=== PATIENT | male | born 1965 | race Caucasian/White ===

== ENCOUNTER 2017-02-10 14:30 | Inpatient (IN) | payer BC ==
[2017-02-10 14:56] VITALS: BMI 30.8
--- OUTSIDE RECORDS SUMMARY | 2017-02-12 05:31 | XMS | Clinical Summary ---
:1965 Author Organization [facility] Address [address] [place] [address] Phone Care Team Providers Name Role Phone , Primary Care Provider Unavailable Allergies No Known Allergies Current Medications Prescription Sig. Disp. Refills Start Date End Date Status darunavir (PREZISTA) Take 600 mg by Active 400 MG tablet mouth 2 (two) times daily with breakfast and dinner. etravirine Take 200 mg by Active (INTELENCE) 100 mg mouth 2 (two) tablet times daily. gabapentin Take 300 mg by 11/27/2014 Active (NEURONTIN) 600 MG mouth 300mg in AM tablet and 600mg in PM. montelukast Take 10 mg by Active (SINGULAIR) 10 mg mouth daily. tablet ritonavir 100 mg Tab Take 1 tablet 0 01/05/2015 Active (100 mg total) by mouth 2 (two) times daily with breakfast and dinner. naloxegol (MOVANTIK) Take 25 mg by Active 25 mg Oral Tab tablet mouth daily. multivitamin Take 1 tablet by Active (MULTIVITAMIN) per mouth daily. tablet MULTIVITAMIN WITH Take 3 tablets by Active MINERALS (HAIR,SKIN mouth daily. AND NAILS ORAL) lactobacillus Take 1 capsule by Active rhamnosus, GG, mouth daily. (CULTURELLE) 10 billion cell capsule lidocaine (LIDODERM) Place 1 patch Active 5 % patch onto the skin daily Pt cuts patch in half and applies to marge shoulders. . HYDROcodone-acetamino Take 1 tablet by Active phen (NORCO 10-325) mouth every 6 10-325 mg per tablet (six) hours as needed for Pain. ELVITEG/MADI/EMTRIC/T Take by mouth. Active ENOFO ALA (GENVOYA ORAL) HYDROmorphone Take 0.5 tablets 30 tablet 0 08/22/2016 Active (DILAUDID) 4 MG (2 mg total) by tablet mouth 3 (three) times daily as needed for Pain. Max Daily Amount: 6 mg aspirin 81 MG Take 1 tablet (81 90 tablet 0 08/22/2016 08/22/2017 Active chewable tablet mg total) by mouth daily. atorvastatin Take 1 tablet (20 90 tablet 0 08/22/2016 08/22/2017 Active (LIPITOR) 20 MG mg total) by tablet mouth nightly. lactulose (CHRONULAC) Take 30 mLs (20 g 500 mL 0 08/22/2016 Active 20 gram/30 mL total) by mouth 2 solution (two) times daily. Active Problems Problem Noted Date CAD (coronary artery disease) 07/17/2016 AICD (automatic cardioverter/defibrillator) present 07/17/2016 HI (myocardial infarction) 07/17/2016 Ventral hernia 07/17/[address] ([facility]) 07/08/2016 Diverticulitis large intestine w/o perforation or abscess w/o bleeding 2016 History of creation of ostomy 07/08/2016 Leukocytosis 12/10/2014 Thrombocytosis ([facility]) 12/10/2014 Nausea & vomiting 12/10/2014 Perforation of sigmoid colon s/p colectomy, end colostomy 12/0412/06/2014 HIV (human immunodeficiency virus infection) ([facility]) 12/06/2014 Sepsis, due to unspecified organism ([facility]) 12/04/2014 Cellulitis 11/28/2014 Cellulitis of foot 11/27/2014 Social History Tobacco Use Types Packs/Day Years Used Date Never Smoker Smokeless Tobacco: Former User Snuff Quit: 08/03/2014 Alcohol Use Drinks/Week oz/Week Comments Yes occasional beer Sex Assigned at Date Recorded Not on file Last Filed Vital Signs Vital Sign Reading Time Taken Blood Pressure 129/77 08/22/2016 12:00 PM CDT Pulse 88 08/22/2016 12:00 PM CDT Temperature 37.1 C (98.7 F) 08/22/2016 12:00 PM CDT Respiratory Rate 20 08/22/2016 12:00 PM CDT Oxygen Saturation 100% 08/22/2016 12:00 PM CDT Inhaled Oxygen Concentration - - Weight 113.4 kg (250 lb) 08/11/2016 8:14 PM CDT Height 185.4 cm (6' 1") 08/11/2016 8:14 PM CDT Body Mass Index 32.98 08/11/2016 8:14 PM CDT Plan of Treatment Not on file Implants Implanted Type Area Television Specialist Device Expiration Model / Identifier Date Serial / Lot Nail Ankle Arthro T2 [id number] [id number] - [id number] Fracture/F Left: Ankle KUSH:KUSH 06/03/2021 [id number] / Implanted:Qty: 1 on 08/20/2016 by Gregory Thibodeaux MD [facility] ORTHOPAEDICS / [id number] Scr Lisseth T2ft 5x40mm Ti Strl - [id number] Fracture/F Left: Ankle KUSH: KUSH 03/05/2021 [id number] / Implanted:Qty: 1 on 08/20/2016 by Gregory Thibodeaux MD [facility] ORTHOPAEDICS / [id number] End Cap Supcndyl Nail T2 Strl 1826-0003s - [id number] Fracture/F Left: Ankle KUSH:KUSH 05/06/2021 [id number] / Implanted:Qty: 1 on 08/20/2016 by Gregory Thibodeaux MD [facility] ORTHOPAEDICS / [id number] Scr Lisseth T2ft 5x40mm Ti Strl - [id number] Fracture/F Left: Ankle KUSH: KUSH 05/06/2021 [id number] / Implanted:Qty: 1 on 08/20/2016 by Gregory Thibodeaux MD [facility] ORTHOPAEDICS / [id number] Scr Lisseth T2ft 5x55mm Ti Strl - [id number] Fracture/F Left: Ankle KUSH: KUSH 04/05/2021 [id number] / Implanted:Qty: 1 on 08/20/2016 by Gregory Thibodeaux MD [facility] ORTHOPAEDICS / [id number] Scr Lisseth T2ft 5x90mm Ti Strl - [id number] Fracture/F Left: Ankle KUSH: KUSH 01/03/2021 [id number] / Implanted:Qty: 1 on 08/20/2016 by Gregory Thibodeaux MD [employer]TH[employer] / [id number] [facility] Katerine Lng-Thrd 4.0x34 Ns - [id number] Fracture/F Left: Ankle SYNTHES: SYNTHES 207.734 / Implanted:Qty: 2 on 08/20/2016 by Gregory Thibodeaux MD [employer] [facility] / Scr Katerine Lng-Thrd 4.0x36 Ns - [id number] Fracture/F Left: Ankle SYNTHES: SYNTHES 207.736 / Implanted:Qty: 1 on 08/20/2016 by Gregory Thibodeaux MD [employer] [facility] / Tiss Live Frm Strtce 20x30 [id number] - [id number] Tissue N/A: LIFECELL 02/03 / Implanted:Qty: 1 on 07/08/2016 by Nickolas Ibrahim MD Graft/Subs Abdomen / titute [id number] Results Not on filefrom Last 3 Months Advance Directives Patient has advance directives. For more information, please contact:[address] [phone]
[2017-02-12] MEDS ORDERED: Lidocaine 1% (PF) 30 ML VIAL ONE (06:28)
[2017-02-12] MEDS ORDERED: Midazolam HCl 2 mg/2 ml Vial ONE ×2 (06:28→07:02)
[2017-02-12] MEDS ORDERED: Ropivacaine 0.2% HCl/PF 20 ML ONE (06:28)
[2017-02-12] MEDS ORDERED: Fentanyl 100 MCG/2 ML VIAL ONE ×2 (06:28→07:02)
[2017-02-12] MEDS ORDERED: CEFAZOLIN/Water 2 GM/20 ML SYRINGE ONE (06:32)
[2017-02-12] MEDS ORDERED: Tranexamic Acid 1,000 MG/100 ML BAG ONE ×2 (06:32→10:35)
[2017-02-12] MEDS ORDERED: Vancomycin HCl 1.5 GM in Sodium Chloride 0.9% 250 ML 300 ML IVPB SCH ×2 (06:45→19:00)
[2017-02-12] MEDS ORDERED: Ondansetron HCl/PF 4 MG/2 ML Vial IVP PRN ×2 (07:02→09:39)
[2017-02-12] MEDS ORDERED: Promethazine HCl 25 MG/ML VIAL IM PRN ×2 (07:02→09:39)
[2017-02-12] MEDS ORDERED: HYDROcodone/Acetaminophen 10/325 mg Tablet PO PRN (07:02)
[2017-02-12] MEDS ORDERED: Ropivacaine 0.2% 550 ML 550 ML NERVE BLCK SCH (07:02)
[2017-02-12] MEDS ORDERED: Zolpidem Tartrate 5 MG TAB PO PRN (07:02)
[2017-02-12] MEDS ORDERED: traMADol HCl 50 MG TAB PO PRN ×2 (07:02)
[2017-02-12] MEDS ORDERED: Fentanyl 250 MCG/5 ML VIAL ONE (07:34)
[2017-02-12] MEDS ORDERED: Glycopyrrolate 0.2 MG/ML 5 ML SYRINGE ONE (07:46)
[2017-02-12] MEDS ORDERED: Ketorolac Tromethamine 30 MG/ML VIAL ONE (07:46)
[2017-02-12] MEDS ORDERED: Ondansetron HCl/PF 4 MG/2 ML Vial ONE (07:46)
[2017-02-12] MEDS ORDERED: PHENYLEPHRINE-NS 100 MCG/ML 10 ML SYRINGE ONE (07:46)
[2017-02-12] MEDS ORDERED: Propofol 200 MG/20 ML VIAL ONE (07:46)
[2017-02-12] MEDS ORDERED: Promethazine HCl 25 MG/ML VIAL SLOW IVP PRN (09:39)
[2017-02-12] MEDS ORDERED: Tranexamic Acid 1,000 MG in Sodium Chloride 0.9% 100 ML IVPB SCH (09:45)
--- NOTE | 2017-02-12 10:27 | OP ---
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 PROCEDURE PERFORMED: Right total shoulder arthroplasty. STAFF: Mayank Bowman M.D. WOODYARD CRANE OPERATOR: Michele Mendez PA-C. ANESTHESIA: Gibosn Brantley. The patient received general endotracheal intubation with interscalene block. ESTIMATED BLOOD LOSS: 300 mL. TOURNIQUET TIME: None. IMPLANTS: A Tornier large 60 chorda lock glenoid, a 50 x 16 long offset head and 60 Flex stem, Tornier products. ANTIBIOTICS: The patient received antibiotics 1.5 mg of vancomycin, 2 grams of Ancef, TXA 1 gram. COMPLICATIONS: None. HISTORY OF PRESENT ILLNESS: Mr. Silva is a 51-year-old male with history of HIV , he is treated in [place] by an Infectious Disease doctor. He also has a history of cardiac disease, has a pacemaker in place on his right side. The patient's right shoulder had an AVN, he has had several injections with good pain relief. The patient was cleared by his formstone fitter and Infectious Disease doctor for T-cell counts and for his heart. I discussed with the patient he is at increased risk of infection, decreased range of motion or strength, damage to vital structures, need for revision surgery, loss of life or limb. The patient understands the risks and benefits and elected to proceed. Time out was performed designating his right upper extremity as the operative site based on sight, consents, markings. PROCEDURE NOTE: Timeout was performed designating his right upper extremity as the operative site based on sight, consents, markings. An anterior incision was made down through skin, deltopectoral interval. We exposed the clavipectoral fascia and the conjoint tendon underneath and placed our Cobell under the conjoint tendon. We exposed the biceps which was actually already torn, then we followed up into the bicipital groove. We took down the subscapularis as well as all the capsule and exposed the inferior neck, using blunt dissection and cautery on bone to expose the osteophytes inferiorly. We then dislocated the head, took osteophytes off inferiorly off of the neck as well as anteriorly. I also took some osteophytes on top of restricting the cuff. We cut our head, ended up in a C angle upon completion, all of our processing of the humeral head. We broached up to a 4, placed a hub cap on top then exposed the glenoid. We started procedure 360 degree release. He had been cleaned down almost to the bone and medialized. We did not do much, we only did some simple reaming to take the anterior lip off, otherwise we cleaned off the glenoid flush. We cleaned off all the cartilage, rongeured off. We then placed our center hole, drilled. We placed our center hole. Before reaming we placed our center hole, enlarged it, placed our pegged implant, drilled our 3 holes, we removed it. We then placed our final implants. It set flush, cemented into place. We were happy with its alignment. I then moved back to the humerus, leaving it to cure before manipulating it. We went up to a size 6, felt we had good stability with size 6 within the bone. We then drilled 5 #5 stitches, 4 as future W stitches and one as a secondary double row over the top through the cuff and through the most lateral part of the greater tuberosity and passed through the stem. After we cured our cement for about 20 minutes we then placed our stem, reduced it into place, had good about 40-50% translation rotated to the side, was able to bring it 130 degrees overhead. I was happy with the overall position and alignment. We then removed it. We placed our final implant, we passed in W stitch fashion from superior to inferior through the cuff a #5. We then tied the double row, which was a running #5 through the cuff to the stitch going through the cuff and out the lateral tuberosity to help with a double row over top. We then put #1 Ethibond stitch into the rotator interval. We then washed, closed the deltopectoral interval with general subcu and skin with norah. The patient will be admitted postoperative for pain control. He will be followed in-house and we will get him discharged based on pain control. The patient will be treated for pain by his chronic pain specialist. DANIEL
[2017-02-12] MEDS ORDERED: fentaNYL 75 mcg/hour Patch TD SCH (12:00)
[2017-02-12] MEDS ORDERED: IBANDRONATE SODIUM 150 MG PO SCH (12:00)
[2017-02-12] MEDS ORDERED: Ondansetron ODT 4 MG TAB PO PRN (12:17)
[2017-02-12] MEDS ORDERED: diphenhydrAMINE 50 MG CAP PO PRN (12:17)
[2017-02-12] MEDS ORDERED: Acetaminophen 325 MG TAB PO PRN (12:17)
[2017-02-12] MEDS ORDERED: Bisacodyl 10 MG SUPP PR PRN (12:17)
--- NOTE | 2017-02-12 12:18 | RAD ---
TWO VIEWS RIGHT SHOULDER: Comparison: None. History: Right shoulder arthroplasty. FINDINGS: Two views of the right shoulder shows the patient to be status post right shoulder arthroplasty with out perihardware lucency or fracture. Overlying skin norah are from recent surgery. A pacemaker is partially visualized. IMPRESSION: Status post right shoulder arthroplasty without evidence of complication. POS: [facility]
[2017-02-12] MEDS: Dextrose 5 %-0.45 % NaCl 1,000 ML IV SCH (13:25)
[2017-02-12] MEDS: CEFAZOLIN/Water 2 GM/20 ML SYRINGE SLOW IVP SCH ×2 (14:28→21:15)
[2017-02-12] MEDS ORDERED: Ropivacaine 0.5% HCl/PF (150 MG/30 ML VIAL) ONE (15:30)
[2017-02-12] MEDS: HYDROcodone/Acetaminophen 10/325 mg Tablet PO PRN (18:03)
[2017-02-12] MEDS ORDERED: [UNRECOGNIZED DRUG - OTHER] PO SCH (18:15)
[2017-02-12] MEDS: Methocarbamol 500 MG TAB PO PRN (20:04)
[2017-02-12] MEDS ORDERED: Gabapentin 300 MG CAP PO SCH (21:00)
[2017-02-12] MEDS ORDERED: Hydroxyurea 500 MG CAP PO SCH (21:00)
[2017-02-12] MEDS ORDERED: Temazepam 15 MG CAP PO SCH (21:00)
[2017-02-13] MEDS: Fentanyl 100 MCG/2 ML VIAL IV PRN ×3 (00:02→15:55)
[2017-02-13] MEDS: HYDROcodone/Acetaminophen 10/325 mg Tablet PO PRN ×2 (04:14→13:11)
[2017-02-13] MEDS: Methocarbamol 500 MG TAB PO PRN (04:17)
[2017-02-13] MEDS: Dextrose 5 %-0.45 % NaCl 1,000 ML IV SCH (04:19)
[2017-02-13] MEDS ORDERED: Lidocaine 5% Patch TD SCH (09:00)
[2017-02-13] MEDS ORDERED: [UNRECOGNIZED DRUG - OTHER] PO SCH (09:00)
[2017-02-13] MEDS ORDERED: Aspirin 325 MG TAB PO SCH (09:00)
[2017-02-13] MEDS ORDERED: Ferrous Sulfate 325 MG TAB PO SCH (09:00)
[2017-02-13] MEDS ORDERED: Vit A,C & E/Lutein/Minerals Tablet PO SCH (09:00)
[2017-02-13 16:24] VITALS: BP 156/75; TEMP 98.6
[2017-02-13] MEDS ORDERED: Lidocaine Patch Removal 1 EACH TOP SCH (21:00)
--- NOTE | 2017-02-22 14:34 | EKG ---
Test Reason : PREOP Blood Pressure : / mmHG Vent. Rate : 058 BPM Atrial Rate : 058 BPM P-R Int : 172 ms QRS Dur : 104 ms QT Int : 430 ms P-R-T Axes : 053 016 038 degrees QTc Int : 422 ms Sinus bradycardia Otherwise normal ECG When compared with ECG of 26-FEB-2016 14:03, Minimal criteria for Anteroseptal infarct are no longer Present Confirmed by ANN-MARIE MASON (2) on 02/22/2017 2:34:32 PM Referred By: MAURI Confirmed By:ANN-MARIE MASON
== END 2017-02-13 16:28 | disposition home or self-care (01) | DRG 483 ==
LOC: SURG A 02-12 05:28 → SJJU 02-12 11:28
PROVIDERS: ADMIT Orthopaedic Surgery; ATTEND Orthopaedic Surgery
PROC: 0RRJ0JZ Replacement of Right Shoulder Joint with Synthetic Substitute, Open Approach (ICD-10-PCS; principal; 2017-02-12)
PROC: 3E0T3BZ Introduction of Anesthetic Agent into Peripheral Nerves and Plexi, Percutaneous Approach (ICD-10-PCS; 2017-02-12)
DX: M19.011 Primary osteoarthritis, right shoulder (principal); M87.9 Osteonecrosis, unspecified; S46.111A Strain of muscle, fascia and tendon of long head of biceps, right arm, initial encounter; X58.XXXA Exposure to other specified factors, initial encounter; Z95.0 Presence of cardiac pacemaker; Z21 Asymptomatic human immunodeficiency virus [HIV] infection status; I25.2 Old myocardial infarction; Z86.14 Personal history of Methicillin resistant Staphylococcus aureus infection; Z96.641 Presence of right artificial hip joint
CPT/HCPCS: 93005; 93010; A4306; C1713; G8978-GP-CI; G8979-GP-CI; G8980-GP-CI; G8987-GO-CJ; G8988-GO-CJ; G8989-GO-CJ; J1642; J1885; J2001; J2250; J2405; J2704; J2795; J3010; J3370; J7050

== ENCOUNTER 2017-07-08 11:35 | Outpatient (CLI) | payer BC ==
[2017-07-08] MEDS ORDERED: Lidocaine 1% PF 10 ML AMP ONE (12:20)
[2017-07-08] MEDS ORDERED: Iopamidol 300 61% 30 ML VIAL ONE (12:20)
[2017-07-08] MEDS ORDERED: Sodium Chloride 0.9% 50 ML BAG ONE (12:20)
[2017-07-08] MEDS ORDERED: EPINEPHrine 1 MG/ML AMP ONE (12:20)
--- NOTE | 2017-07-08 17:35 | RAD ---
PROCEDURE: LEFT SHOULDER ARTHROGRAM 07/08/17 INDICATIONS: Severe degenerative change at left shoulder with pain. FINDINGS: Compensation And Benefits Manager film showed deformity of the humeral head with severe hypertrophic degenerative changes at the glenohumeral joint. Diluted iodinated contrast which was premixed by the pharmacy was injected throug h a 22 gauge spinal needle into the left shoulder joint under fluoroscopic observation. Contrast fills the shoulder joint. No definite extravasation into the subacromial space identified. See post CT arthrogram of left shoulder for further characterization. PROCEDURE NOTE: The anterior skin overlying the left shoulder was prepped and draped in the sterile manner. Local ane sthesia was administered with lidocaine under fluoroscopic guidance. A 22 gauge spinal needle was use d to enter the left shoulder joint under fluoroscopic guidance. Contrast solution was injected under fluoroscopic observation. Patient tolerated the procedure well and there were no problems or complic ations. POS: [facility]
--- NOTE | 2017-07-08 18:04 | CT ---
CT ARTHROGRAM LEFT SHOULDER WITH INTRA-ARTICULAR CONTRAST 07/08/17 PROVIDED CLINICAL HISTORY: Left shoulder pain. FINDINGS: There is complete loss of the left glenohumeral joint space. There is marked irregularity, flattening and subcortical cyst-like change seen involving the humeral head and to a lesser extent the glenoid, particularly superiorly. Numerous intra-articular bodies are noted throughout the glenohumeral joint, including within the sup erior subscapularis recess. Contrast material does not appear to extend beyond the expected confines of the shoulder joint capsule to suggest a full thickness rotator cuff tear. There is mild generalize d volume loss involving the musculature of the rotator cuff. Mild acromioclavicular joint degenerative changes are seen. The osseous structures demonstrate no con cerning osteoblastic or osteolytic lesions. Visualized left lung field appears clear. IMPRESSION: End-stage glenohumeral arthropathy with numerous large intra-articular bodies. No evidence for full t hickness rotator cuff tear. POS: [facility]
== END 2017-07-08 11:36 | disposition home or self-care (01) ==
LOC: RAD 11:35
PROVIDERS: ATTEND Orthopaedic Surgery
DX: M25.512 Pain in left shoulder (principal); M12.812 Other specific arthropathies, not elsewhere classified, left shoulder
CPT/HCPCS: 23350; J0171; J7050

== ENCOUNTER 2017-07-28 13:29 | Outpatient (CLI) | payer BC ==
[2017-07-28 14:43] LABS: Hemoglobin 14.5 g/dL (14.0-18.0); Mean Corpuscular Hemoglobin 31.1 pg (27.0-31.0); Mean Platelet Volume 6.7 fL (7.4-10.4); Platelet Count 565 thou/uL (130-400); RBC Distribution Width 15.5 % (11.5-14.5); Red Blood Cell (RBC) Count 4.66 mill/uL (4.70-6.10); White Blood Cell (WBC) Count 9.1 thou/uL (4.8-10.8)
[2017-07-28 14:50] LABS: INR-International Normal Ratio 1.1; Prothrombin Time 13.9 SEC (12.0-14.7)
[2017-07-28 15:05] LABS: Anion Gap 14 mmol/L (10-20); BUN (Urea Nitrogen) 17 mg/dL (8.4-25.7); Calc. Creatinine Clearance 0 mL/min (70-130); Calcium 9.3 mg/dL (7.8-10.44); Carbon Dioxide 27 mmol/L (22-29); Chloride 102 mmol/L (98-107); Estimated GFR-MDRD Greater than 90; Glucose 81 mg/dL (70-105); Potassium 4.7 mmol/L (3.5-5.1); Sodium 138 mmol/L (136-145)
== END 2017-07-28 13:30 | disposition home or self-care (01) ==
LOC: LABBT 13:29
PROVIDERS: ATTEND Orthopaedic Surgery
DX: Z01.812 Encounter for preprocedural laboratory examination (principal); M19.012 Primary osteoarthritis, left shoulder
CPT/HCPCS: 80048; 85027; 85610; 86850; 86900; 86901

== ENCOUNTER 2017-07-28 15:00 | Inpatient (IN) | payer BC ==
[2017-07-28 13:50] VITALS: BMI 32.1
[2017-07-30] MEDS ORDERED: CEFAZOLIN/Water 2 GM/20 ML SYRINGE ONE (08:00)
[2017-07-30] MEDS ORDERED: Vancomycin HCl 1.5 GM, Admixture Fee 1 EACH in Sodium Chloride 0.9% 250 ML 300 ML IVPB SCH (08:15)
[2017-07-30] MEDS ORDERED: Lidocaine 2% Jelly 5 ML TUBE ONE (08:19)
[2017-07-30] MEDS ORDERED: Phenylephrine HCL 10 MG/ML VIAL ONE (08:19)
[2017-07-30] MEDS ORDERED: Midazolam HCl 2 mg/2 ml Vial ONE (08:44)
[2017-07-30] MEDS ORDERED: Fentanyl 100 MCG/2 ML VIAL ONE ×3 (08:44→13:09)
[2017-07-30] MEDS ORDERED: Ropivacaine 0.2% 550 ML 550 ML NERVE BLCK SCH (09:23)
[2017-07-30] MEDS ORDERED: traMADol HCl 50 MG TAB PO PRN (09:23)
[2017-07-30] MEDS ORDERED: Promethazine HCl 25 MG/ML VIAL IM PRN ×2 (09:23→12:11)
[2017-07-30] MEDS ORDERED: Zolpidem Tartrate 5 MG TAB PO PRN (09:23)
[2017-07-30] MEDS ORDERED: Ondansetron HCl/PF 4 MG/2 ML Vial IVP PRN ×3 (09:23→14:13)
[2017-07-30] MEDS ORDERED: HYDROcodone/Acetaminophen 5/325 mg Tablet PO PRN (09:23)
[2017-07-30] MEDS ORDERED: Tranexamic Acid 1,000 MG in Sodium Chloride 0.9% 100 ML IVPB SCH (09:45)
[2017-07-30] MEDS ORDERED: Promethazine HCl 25 MG/ML VIAL SLOW IVP PRN (12:11)
[2017-07-30] MEDS ORDERED: Ropivacaine 0.2% HCl/PF (40 MG/20 ML VIAL) ONE (12:46)
[2017-07-30] MEDS ORDERED: Ropivacaine 0.5% HCl/PF (150 MG/30 ML VIAL) ONE (12:46)
[2017-07-30] MEDS ORDERED: PROPOFOL 200 MG/20 ML VIAL ONE (12:56)
[2017-07-30] MEDS ORDERED: PHENYLEPHRINE-NS 100 MCG/ML 10 ML SYRINGE ONE (12:56)
[2017-07-30] MEDS ORDERED: Ketorolac Tromethamine 30 MG/ML VIAL ONE (12:56)
[2017-07-30] MEDS ORDERED: Glycopyrrolate 0.2 MG/ML 5 ML SYRINGE ONE (12:56)
[2017-07-30] MEDS ORDERED: Acetaminophen 325 MG TAB PO PRN (14:13)
[2017-07-30] MEDS ORDERED: diphenhydrAMINE 50 MG CAP PO PRN (14:13)
[2017-07-30] MEDS ORDERED: Ondansetron ODT 4 MG TAB PO PRN (14:13)
[2017-07-30] MEDS ORDERED: Bisacodyl 10 MG SUPP PR PRN (14:13)
[2017-07-30] MEDS ORDERED: Milk Of Magnesia 30 ML UDCUP PO PRN (14:13)
[2017-07-30] MEDS: Fentanyl 100 MCG/2 ML VIAL IV PRN ×3 (15:46→23:39)
[2017-07-30] MEDS: Sodium Chloride 0.9% 1,000 ML IV SCH (17:29)
[2017-07-30] MEDS: CEFAZOLIN/Water 2 GM/20 ML SYRINGE SLOW IVP SCH ×2 (18:15→23:26)
[2017-07-30] MEDS ORDERED: Vancomycin HCl 1.5 GM in Sodium Chloride 0.9% 250 ML 300 ML IVPB SCH (20:00)
[2017-07-30] MEDS ORDERED: Chloraseptic Spray 180 ml Bottle PO PRN (20:18)
[2017-07-30] MEDS ORDERED: Gabapentin 300 MG CAP PO SCH (21:00)
[2017-07-30] MEDS ORDERED: Hydroxyurea 500 MG CAP PO SCH (21:00)
[2017-07-30] MEDS ORDERED: Montelukast Sodium 10 mg Tablet PO SCH (21:00)
[2017-07-30] MEDS ORDERED: Temazepam 15 MG CAP PO SCH (21:00)
[2017-07-30] MEDS: Famotidine 20 MG TAB PO SCH (21:11)
[2017-07-31] MEDS: HYDROcodone/Acetaminophen 5/325 mg Tablet PO PRN ×3 (00:53→22:58)
[2017-07-31] MEDS: traMADol HCl 50 MG TAB PO PRN ×3 (02:42→20:07)
[2017-07-31] MEDS: Fentanyl 100 MCG/2 ML VIAL IV PRN ×3 (05:44→19:49)
[2017-07-31] MEDS: Sodium Chloride 0.9% 1,000 ML IV SCH ×2 (05:44→09:45)
[2017-07-31] MEDS ORDERED: Non-Formulary Item 1 EACH (Ibandronate Sodium [Ibandronate Sodium] 150 MG) PO SCH (08:45)
[2017-07-31] MEDS ORDERED: LUTEIN PO SCH (09:00)
[2017-07-31] MEDS ORDERED: MULTIVIT MIN PO SCH (09:00)
[2017-07-31] MEDS ORDERED: Meloxicam 15 MG TAB PO SCH (09:00)
[2017-07-31] MEDS ORDERED: GENVOYA PO SCH (09:00)
[2017-07-31] MEDS ORDERED: [UNRECOGNIZED DRUG - OTHER] PO SCH (09:00)
[2017-07-31] MEDS ORDERED: FOLIC ACID PO SCH (09:00)
[2017-07-31] MEDS ORDERED: [UNRECOGNIZED DRUG - OTHER] PO SCH (09:00)
[2017-07-31] MEDS ORDERED: Ferrous Sulfate 325 MG TAB PO SCH ×2 (09:00→09:15)
[2017-07-31] MEDS ORDERED: FERROUS SULFATE 324 MG PO SCH (09:00)
[2017-07-31] MEDS ORDERED: fentaNYL 75 mcg/hour Patch TD SCH (09:00)
[2017-07-31] MEDS ORDERED: Lidocaine 5% Patch TD SCH (09:00)
[2017-07-31] MEDS ORDERED: Vit A,C & E/Lutein/Minerals Tablet PO SCH (09:15)
--- NOTE | 2017-07-31 09:35 | OP ---
DATE OF PROCEDURE: 07/30/2017 PREOPERATIVE DIAGNOSES: 1. Left shoulder osteoarthritis, severe. 2. Biceps tendonopathy. POSTOPERATIVE DIAGNOSES: 1. Left shoulder osteoarthritis, severe. 2. Biceps tendonopathy. PROCEDURES PERFORMED: 1. Left total shoulder arthroplasty. 2. Biceps tenodesis. STAFF: Mayank oBwman M.D. MERIT SYSTEM DIRECTOR: Michele Mendez PA-C. ANESTHESIA: Brantley. The patient received a general endotracheal intubation with interscalene block. ESTIMATED BLOOD LOSS: 400 mL. TOURNIQUET TIME: None. IMPLANTS: A Tornier 50 x 19 mm high offset head with a flex 60 stem, a large 60 chorda lock glenoid. ANTIBIOTICS: Vancomycin 1.5, Ancef 2 grams, TXA 1 gram. COMPLICATIONS: None. HISTORY OF PRESENT ILLNESS: Mr. Silva is a 52-year-old male with multiple medical problems to include HIV, chronic pain, coronary artery disease, left ankle infection, gallbladder, asthma, discussed with patient the risks and benefits of the left total shoulder arthroplasty with biceps tenodesis. He understood the risks of the procedure to include pain, scar, bleeding, infection to vital structures, decreased range of motion or strength, malunion of a fracture, failure of implants, need for further surgeries, loss of life or limb. The patient understood the risks and benefits of the procedure and elected to proceed. PROCEDURE NOTE: Timeout was performed on the patient's left upper extremity as the operative site based on sight, consents and markings. After a timeout was performed, the patient had a deltopectoral incision made down through skin. The vein was found and it was moved medially caught up crossing bleeder, found our interval adductor pectoral tendon and conjoined tendon exposed the rotator cuff. It came down the biceps to release the subscapularis and the capsule. The patient had a large flattened head with a biconcavity and the large osteophyte inferiorly which we had to cauterize out. We removed some loose bodies inferiorly and exposed the humerus. We then made our cut and started opening reamers, broached up and it was cut again due to the biconcavity. Reamed and removed all the osteophytes peripherally keeping the cuff intact throughout this. We then placed a manhole cover on the stem, 5 mL stem, we placed our Bankart anteriorly, took down the inferior capsule in 360 degree fashion tenotomized biceps, took down the entire labrum all the way posteriorly. We then exposed the dura. We placed our Bankart retractor. We then used a curette and osteotome to remove the large osteophytes and measured 60 x 30 x 10 mm posteriorly which decompressed the teres as well as a portion of the infraspinatus. We removed that osteophyte. We then looked at her head, sized it to about a 60 mm large pegged glenoid. We then did our center hole reamed, cleaned, placed our 3-drill holes cemented into place, impacted into position. We let the cement dry about 19 minutes before we did the manipulation on it. We then reduced the shoulder back. We went up to 6C, cleaned the top measured with drilled 4 holes for our W stitches. We then did two more laterally to help with our rotator cuff over the top, a double row over the top. We then waited for the cement to dry. We then placed the final 5 x 19 high offset, we tried the low offset, the thinner head, felt like it would better fit with the 5 x 19. We then reduced it in place. We reduced the shoulder, placed our final implants in place. We placed W stitches through the rotator cuff, the shoulder internally rotated inferior to superiorly closing the rotator interval. We then used the #2 Ethibond, tenodesed the biceps in the groove through the rotator cuff as well as closed the rotator interval, we then placed a second double row over the top and it run through the subscapularis as well as put through the cuff and laterally within the humerus to kind of oversew on top to help with the cuff repair, placed and cut. We then washed. We closed the deltopectoral and overall with 2-0, and norah. The patient will be admitted to hospital for pain control postop and will be followed in-house. DANIEL
[2017-07-31] MEDS: Famotidine 20 MG TAB PO SCH ×2 (09:39→20:02)
[2017-07-31] MEDS: Aspirin 81 mg Enteric Coated Tablet PO SCH (09:39)
[2017-07-31] MEDS: Ferrous Sulfate 325 MG TAB PO SCH (09:39)
[2017-07-31] MEDS: Vit A,C & E/Lutein/Minerals Tablet PO SCH (09:39)
[2017-07-31] MEDS: Montelukast Sodium 10 mg Tablet PO SCH (11:57)
[2017-07-31] MEDS: Lidocaine 5% Patch TD SCH (14:28)
--- NOTE | 2017-07-31 14:36 | PDOC.PN ---
- Subjective Encounter Start Date: 07/31/17 Encounter Start Time: 14:34 Subjective: IM team consulted for medical management post Total Left shoulder -: pt seen and examined,chart reviewed in detail -: denies any SOB/CP/fever/chills - Objective MAR Reviewed: Yes Vital Signs & Weight: Vital Signs (12 hours) Temp Pulse Resp BP Pulse Ox 07/31/17 12:03 120 H 20 154/93 H 96 07/31/17 07:27 98.1 F 83 18 07/31/17 07:10 98.3 F 90 18 120/77 95 07/31/17 03:32 98.1 F 83 18 121/79 93 L Weight Weight 250 lb Phys Exam - Physical Examination Constitutional: NAD HEENT: PERRLA, moist MMs, sclera anicteric, oral pharynx no lesions Neck: no nodes, no JVD, supple, full ROM Respiratory: no wheezing, no rales, no rhonchi, clear to auscultation bilateral Cardiovascular: RRR, no significant murmur, no rub, gallop Gastrointestinal: soft, non-tender, no distention, positive bowel sounds Musculoskeletal: no edema, pulses present L arm in sling Neurological: non-focal, normal sensation, moves all 4 limbs Psychiatric: normal affect, A&O x 3 Skin: no rash Dx/Plan (1) CAD (coronary artery disease), la posta coronary artery Code(s): I25.10 - ATHSCL HEART DISEASE OF [place] CORONARY ARTERY W/O ANG PCTRS Status: Chronic Qualifiers: (2) HIV disease Code(s): B20 - HUMAN IMMUNODEFICIENCY VIRUS [HIV] DISEASE Status: Chronic (3) History of avascular necrosis of capital femoral epiphysis Code(s): Z87.39 - PERSONAL HISTORY OF DISEASES OF THE MS SYS AND CONN TISS Status: Chronic (4) Hx MRSA infection Code(s): Z86.14 - PERSONAL HISTORY OF METHICILLIN RESIS STAPH INFECTION Status : Chronic (5) On HAART (highly active antiretroviral) therapy Code(s): Z79.899 - OTHER DUST COLLECTOR (CURRENT) DRUG THERAPY Status: Chronic (6) Thrombocythemia Status: Chronic (7) Status post reverse total arthroplasty of left shoulder Code(s): Z96.612 - PRESENCE OF LEFT ARTIFICIAL SHOULDER JOINT Status: Acute - Plan PT/OT, out of bed/ambulate, DVT proph w/SCDs restart home meds into anti-retrovirals. -: restart Movantik-takes PRN.pain meds accd to home med list -: cont ASA.check labs in am w CBC and cmp -: Hydroxyurea for Thrombocythemia. -: add duonebs prn w h/o asthma * . Review of Systems - Review of Systems Constitutional: negative: fever, chills, sweats, weakness, malaise, other Eyes: negative: Pain, Vision Change, Conjunctivae Inflammation, Eyelid Inflammation, Redness, Other ENT: negative: Ear Pain, Ear Discharge, Nose Pain, Nose Discharge, Nose Congestion, Mouth Pain, Mouth Swelling, Throat Pain, Throat Swelling, Other Respiratory: negative: Cough, Dry, Shortness of Breath, Hemoptysis, SOB with Excertion, Pleuritic Pain, Sputum, Wheezing Cardiovascular: negative: chest pain, palpitations, orthopnea, paroxysmal nocturnal dyspnea, edema, light headedness, other Gastrointestinal: negative: Nausea, Vomiting, Abdominal Pain, Diarrhea, Constipation, Melena, Hematochezia, Other Genitourinary: negative: Dysuria, Frequency, Incontinence, Hematuria, Retention , Other Musculoskeletal: Shoulder Pain. negative: Neck Pain, Arm Pain, Back Pain, Hand Pain, Leg Pain, Foot Pain, Other Skin: negative: Rash, Lesions, Juancarlos, Bruising, Other Neurological: negative: Weakness, Numbness, Incoordination, Change in Speech, Confusion, Seizures, Other - Medications/Allergies Allergies/Adverse Reactions: Allergies Allergy/AdvReac Type Severity Reaction Status Date / Time No Known Allergies Allergy Unverified 07/28/17 14:10 Medications: Current Medications Acetaminophen (Tylenol) 650 mg PO Q4H PRN PRN Reason: LYNN/T > 101.5F Hydrocodone Bitart/Acetaminophen ([place] 5/325) 1 tab PO Q4H PRN PRN Reason: Mild Pain (1-3) Hydrocodone Bitart/Acetaminophen ([place] 5/325) 2 tab PO Q4H PRN PRN Reason: For Moderate Pain 4-6 Last Admin: 07/31/17 11:56 Dose: 2 tab Albuterol/Ipratropium (Duoneb) 3 ml NEB [id number] PRN PRN Reason: SOB &/or Wheezing Aspirin (Ecotrin) 81 mg PO DAILY [facility] Last Admin: 07/31/17 09:39 Dose: 81 mg Bisacodyl (Dulcolax) 10 mg MD Q6H PRN PRN Reason: Constipation Diphenhydramine HCl (Benadryl) 50 mg PO Q4H PRN PRN Reason: Itching Famotidine (Pepcid) 20 mg PO BID [facility] Last Admin: 07/31/17 09:39 Dose: 20 mg Fentanyl (Sublimaze) 50 mcg IV Q1H PRN PRN Reason: BREAKTHROUGH PAIN Last Admin: 07/31/17 05:44 Dose: 50 mcg Fentanyl (Duragesic) 75 mcg TD Q3D [facility] Last Admin: 07/31/17 11:49 Dose: Not Given Ferrous Sulfate (Feosol) 325 mg PO DAILY [facility] Last Admin: 07/31/17 09:39 Dose: 325 mg Gabapentin (Neurontin) 600 mg PO HS [facility] Hydroxyurea (Hydrea) 500 mg PO [facility] Ropivacaine (Ropivacaine 0.2% 550 Ml) 550 mls @ 0 mls/hr NERVE BLCK INF [facility] PRN Reason: As Directed Sodium Chloride (Normal Saline 0.9%) 1,000 mls @ 65 mls/hr IV .[id number] [facility] Last Admin: 07/31/17 09:45 Dose: 1,000 mls Lidocaine (Lidoderm 5% Patch) 1 patch TD DAILY [facility] Last Admin: 07/31/17 14:28 Dose: Not Given Magnesium Hydroxide (Milk Of Magnesium) 30 ml PO DAILYPRN PRN PRN Reason: Constipation Miscellaneous Medication (Lidocaine Patch Removal) 1 each TOP QPM [facility] Miscellaneous Medication (Movantik) 25 mg PO QAM [facility] Last Admin: 07/31/17 11:51 Dose: Not Given Montelukast Sodium (Singulair) 10 mg PO QAM [facility] Last Admin: 07/31/17 11:57 Dose: 10 mg Multivitamins/Minerals (Ocuvite With Lutein) 1 tab PO DAILY [facility] Last Admin: 07/31/17 09:39 Dose: 1 tab Ibandronate 150mg 1 each PO Q30D [facility] Ondansetron HCl (Zofran) 4 mg IVP Q6H PRN PRN Reason: Nausea/Vomiting Ondansetron HCl (Zofran Odt) 4 mg PO Q6H PRN PRN Reason: Nausea/Vomiting Genvoya Patient's (Home Medication) 1 each PO QAM [facility] Phenol (Chloraseptic [place] 180 Ml Bot) 0 ml PO PRN PRN PRN Reason: . Last Admin: 07/30/17 21:10 Dose: 1 spray Promethazine HCl (Phenergan) 12.5 mg IM Q4H PRN PRN Reason: Nausea Sodium Chloride (Flush - Normal Saline) 10 ml IVF PRN PRN PRN Reason: Saline Flush Temazepam (Restoril) 30 mg PO HS [facility] Tramadol HCl (Ultram) 50 mg PO Q6H PRN PRN Reason: Mild Pain (1-3) Tramadol HCl (Ultram) 100 mg PO Q6H PRN PRN Reason: Moderate Pain 4-6 Last Admin: 07/31/17 13:05 Dose: 100 mg Zolpidem Tartrate (Ambien) 10 mg PO HSPRN PRN PRN Reason: Insomnia
[2017-07-31] MEDS ORDERED: Temazepam 15 MG CAP PO SCH (21:00)
[2017-07-31] MEDS ORDERED: TEMAZEPAM 30 MG PO SCH (21:00)
[2017-07-31] MEDS ORDERED: Hydroxyurea 500 MG CAP PO SCH (21:00)
[2017-07-31] MEDS ORDERED: Lidocaine Patch Removal TOP SCH (21:00)
[2017-07-31] MEDS ORDERED: Gabapentin 300 MG CAP PO SCH (21:00)
[2017-08-01] MEDS: Fentanyl 100 MCG/2 ML VIAL IV PRN (00:38)
[2017-08-01] MEDS: HYDROcodone/Acetaminophen 5/325 mg Tablet PO PRN ×3 (02:53→11:18)
[2017-08-01] MEDS: traMADol HCl 50 MG TAB PO PRN ×2 (02:54→09:11)
[2017-08-01 04:58] LABS: Eosinophils 4 % (0-10); Hemoglobin 11.5 g/dL (14.0-18.0); Lymphocytes 19 % (21-51); MDiff Complete? YES; Mean Corpuscular HGB CONC 32.3 g/dL (32.0-36.0); Mean Corpuscular Hemoglobin 31.2 pg (27.0-31.0); Mean Corpuscular Volume 96.8 fl (80.0-94.0); Monocytes 16 % (0-10); Neutrophil 61 % (42-75); Platelet Count 388 thou/uL (130-400); RBC Distribution Width 15.1 % (11.5-14.5); Red Blood Cell (RBC) Count 3.67 mill/uL (4.70-6.10); White Blood Cell (WBC) Count 6.9 thou/uL (4.8-10.8)
[2017-08-01 05:09] LABS: ALT (SGPT) 10 U/L (8-55); AST (SGOT) 19 U/L (5-34); Albumin 3.1 g/dL (3.5-5.0); Alkaline Phosphatase 77 U/L (40-150); Anion Gap 8 mmol/L (10-20); BUN (Urea Nitrogen) 10 mg/dL (8.4-25.7); Bilirubin, Total 0.3 mg/dL (0.2-1.2); Calc. Creatinine Clearance 199 mL/min (70-130); Calcium 8.2 mg/dL (7.8-10.44); Carbon Dioxide 28 mmol/L (22-29); Chloride 105 mmol/L (98-107); Estimated GFR-MDRD Greater than 90; Globulin 3.1 g/dL (2.4-3.5); Glucose 98 mg/dL (70-105); Potassium 3.6 mmol/L (3.5-5.1); Protein, Total 6.2 g/dL (6.0-8.3); Sodium 137 mmol/L (136-145)
[2017-08-01 08:09] VITALS: TEMP 98.3
[2017-08-01] MEDS: Montelukast Sodium 10 mg Tablet PO SCH (09:07)
[2017-08-01] MEDS: Vit A,C & E/Lutein/Minerals Tablet PO SCH (09:08)
[2017-08-01] MEDS: Famotidine 20 MG TAB PO SCH (09:08)
[2017-08-01] MEDS: Aspirin 81 mg Enteric Coated Tablet PO SCH (09:09)
[2017-08-01] MEDS: Ferrous Sulfate 325 MG TAB PO SCH (09:09)
[2017-08-01] MEDS: Lidocaine 5% Patch TD SCH (09:09)
[2017-08-01] MEDS: Sodium Chloride 0.9% 1,000 ML IV SCH (09:10)
[2017-08-01 11:51] VITALS: BP 144/91
--- NOTE | 2017-08-01 22:05 | DIS ---
DATE OF ADMISSION: 07/30/2017 DATE OF DISCHARGE: 08/01/2017 ADMITTING DIAGNOSES: Severe left total shoulder arthroplasty, biceps tendinosis. PROCEDURE PERFORMED: Left total shoulder arthroplasty. ADMITTING STAFF: Mayank Bowman M.D. HISTORY OF PRESENT ILLNESS: Mr. Silva is a pleasant 52-year-old male who presented with left shoulde r pain which had failed conservative measures. The patient underwent an uneventful difficult left to christopher shoulder arthroplasty. The patient's significant past medical history to include HIV as well as coronary artery disease, pac emaker, patient also has a history of chronic pain. He is followed by chronic pain doctor. He was i n the hospital today for pain management and pain control. Postoperatively, he had a block in place per Anesthesia. The patient's pain controlled today and will be discharged home. He will follow up in 2 weeks. He has dressing removed. Postop day 1, keep it covered until followup. He will work on pendulum, elbow, wrist, and hand motion. No external rotation greater than 20 degrees. We will pro bon his motion when I see him back in 2 weeks. The patient's all his pain medications will be given through his pain doctor. I will continue on his home medications. Restart his aspirin.
[2017-08-04] MEDS ORDERED: IBANDRONATE 150 MG PO SCH (09:00)
== END 2017-08-01 13:27 | disposition home or self-care (01) | DRG 483 ==
LOC: SJJU 07-30 06:52 → SURG B 07-30 12:49
PROVIDERS: ADMIT Orthopaedic Surgery; ATTEND Orthopaedic Surgery
PROC: 0RRK0JZ Replacement of Left Shoulder Joint with Synthetic Substitute, Open Approach (ICD-10-PCS; principal; 2017-07-30)
DX: M75.22 Bicipital tendinitis, left shoulder (principal); B20 Human immunodeficiency virus [HIV] disease; M19.012 Primary osteoarthritis, left shoulder; G89.29 Other chronic pain; I25.10 Atherosclerotic heart disease of native coronary artery without angina pectoris; Z79.899 Other long term (current) drug therapy; Z86.14 Personal history of Methicillin resistant Staphylococcus aureus infection
CPT/HCPCS: 36415; 80053; 85025; A4306; C1713; G8978-GP-CI; G8979-GP-CI; G8980-GP-CI; G8987-GO-CJ; G8988-GO-CJ; G8989-GO-CJ; J1885; J2250; J2370; J2704; J2795; J3010; J3370; J7050

== ENCOUNTER 2022-07-25 13:44 | Outpatient (CLI) | payer BC ==
[2022-07-25 14:25] LABS: #Basophils 0.1 10x3/uL (0.0-0.2); #Eosinphils 0.2 10x3/uL (0.0-0.5); #Monocytes 1.1 10x3/uL (0.0-1.1); #Neutrophils 7.5 10x3/uL (1.5-8.4); %Basophils 0.8 % (0.0-2.0); %Eosinophils 1.5 % (0.0-6.0); %Lymphocytes 10.5 % (18.0-47.0); %Monocytes 10.9 % (0.0-10.0); %Neutrophils 75.6 % (40.0-75.0); Hemoglobin 16.4 g/dL (13.5-17.5); Mean Corpuscular HGB CONC 31.7 g/dL (32.0-36.0); Mean Corpuscular Hemoglobin 29.1 pg (27.0-33.0); Mean Corpuscular Volume 91.8 fl (81.2-95.1); Mean Platelet Volume 9.4 fl (7.4-10.4); Platelet Count 637 10x3/uL (150-450); RBC Distribution Width 15.7 % (11.5-14.5); Red Blood Cell (RBC) Count 5.64 10x6/uL (4.32-5.72); White Blood Cell (WBC) Count 9.9 10x3/uL (3.5-10.5)
== END 2022-07-25 13:45 | disposition home or self-care (01) ==
LOC: LABBT 13:44
PROVIDERS: ATTEND Orthopaedic Surgery Hand Surgery
DX: Z01.818 Encounter for other preprocedural examination (principal); M65.4 Radial styloid tenosynovitis [de Quervain]
CPT/HCPCS: 85025; 93005; 93010

== ENCOUNTER 2022-07-29 07:51 | Day surgery (SDC) | payer BC ==
[2022-07-28 13:53] VITALS: BMI 34.1
[2022-07-29] MEDS ORDERED: Bupivacaine PF 0.5% 30 ML VIAL ONE (08:48)
[2022-07-29] MEDS ORDERED: Bacitracin Zinc Ointment 30 gm TUBE ONE (08:48)
[2022-07-29] MEDS ORDERED: CEFAZOLIN 2 GM VIAL ONE (09:14)
[2022-07-29] MEDS ORDERED: Sodium Chloride 0.9% 100 ML ONE (09:14)
[2022-07-29] MEDS ORDERED: fentaNYL PF 100 MCG/2 ML SYRINGE ONE (09:16)
[2022-07-29] MEDS ORDERED: Dexamethasone 20 MG/5 ML VIAL ONE (09:24)
[2022-07-29] MEDS ORDERED: ePHEDrine Sulfate 50 MG/10 ML VIAL ONE (09:24)
[2022-07-29] MEDS ORDERED: Lidocaine 1% PF 5 ML VIAL ONE (09:24)
[2022-07-29] MEDS ORDERED: PHENYLEPHRINE-NS 100 MCG/ML 10 ML SYRINGE ONE (09:24)
[2022-07-29] MEDS ORDERED: PROPOFOL 200 MG/20 ML VIAL ONE (09:24)
[2022-07-29] MEDS ORDERED: Ondansetron PF 4 MG/2 ML Vial ONE (09:24)
[2022-07-29] MEDS ORDERED: Ketorolac Tromethamine 30 MG/ML VIAL ONE (10:46)
== END 2022-07-29 12:11 | disposition home or self-care (01) ==
LOC: SDC 07:51
PROVIDERS: ATTEND Orthopaedic Surgery Hand Surgery
PROC: 0LB60ZZ Excision of Left Lower Arm and Wrist Tendon, Open Approach (ICD-10-PCS; principal; 2022-07-29)
PROC: 0LN50ZZ Release Right Lower Arm and Wrist Tendon, Open Approach (ICD-10-PCS; principal; 2022-07-29)
DX: M65.4 Radial styloid tenosynovitis [de Quervain] (principal); I48.91 Unspecified atrial fibrillation; I11.0 Hypertensive heart disease with heart failure; I50.9 Heart failure, unspecified; I25.10 Atherosclerotic heart disease of native coronary artery without angina pectoris; I87.2 Venous insufficiency (chronic) (peripheral); M19.90 Unspecified osteoarthritis, unspecified site; I25.2 Old myocardial infarction; Z79.1 Long term (current) use of non-steroidal anti-inflammatories (NSAID); Z79.2 Long term (current) use of antibiotics; Z79.82 Long term (current) use of aspirin; Z79.899 Other long term (current) drug therapy; Z95.810 Presence of automatic (implantable) cardiac defibrillator
CPT/HCPCS: 88305; J1100; J1885; J2405; J2704; J3490; S0020